=== PATIENT | male | born 1960 | race Hispanic/Latino ===

== ENCOUNTER 2020-12-20 20:53 | Emergency (ER) | payer OTHER ==
[~2020-12-20] VITALS: Ht 172.7 cm; Wt 90.7 kg
[2020-12-20 21:02] VITALS: BP 120/57
[2020-12-20 21:06] VITALS: BP 114/65
[2020-12-20] MEDS ORDERED: FAMOTIDINE/PF 20 MG/2 ML VIAL IV SCH (21:15)
[2020-12-20] MEDS ORDERED: FAMOTIDINE/PF 20 MG/2 ML VIAL IV ONE (21:20)
[2020-12-20 21:33] LABS: BASOPHILS % (AUTO) 0.1 % (0.0-5.0); EOSINOPHILS % (AUTO) 0.8 % (0.0-8.0); HEMATOCRIT 42.5 % (42-54); LYMPHOCYTES % (AUTO) 16.4 % (21.0-51.0); MEAN CORPUSCULAR HEMOGLOBIN 28.6 pg (27.0-33.0); MEAN CORPUSCULAR HGB CONC 33.4 g/dL (32.0-36.0); MEAN CORPUSCULAR VOLUME 85.7 fL (79-99); MONOCYTES % (AUTO) 5.2 % (3.0-13.0); NEUTROPHILS % (AUTO) 77.1 % (40.0-77.0); PLATELET COUNT (AUTO) 246 K/uL (130-400); RED BLOOD CELL COUNT(AUTO) 4.96 MIL/uL (4.50-6.20); RED CELL DISTRIBUTION WIDTH 13.6 % (11.0-15.5); WHITE BLOOD COUNT (AUTO) 10.1 K/uL (4.8-10.8)
[2020-12-20 21:44] LABS: CREATININE 1.2 mg/dL (0.5-1.5); POTASSIUM 4.3 mmol/L (3.5-5.1)
[2020-12-20 22:06] LABS: ALBUMIN 3.3 g/dL (3.5-5.0); BILIRUBIN,TOTAL 0.4 mg/dL (0.2-1.0); TOTAL PROTEIN, SERUM 6.2 g/dL (6.0-8.3)
[2020-12-20 22:51] VITALS: BP 110/61
[2020-12-20] MEDS ORDERED: ONDA4TAB10 PO (23:42)
[2020-12-20] MEDS ORDERED: PRED50TA2 PO (23:42)
[2020-12-20] MEDS ORDERED: PREDNISONE 20 MG TABLET PO SCH (23:45)
[2020-12-20] MEDS ORDERED: ONDANSETRON ODT 4 MG TAB SL SCH (23:45)
[2020-12-21] MEDS ORDERED: PREDNISONE 20 MG TABLET ONE (00:01)
[2020-12-21] MEDS ORDERED: ONDANSETRON ODT 4 MG TAB ONE (00:02)
[2020-12-21 00:07] VITALS: BP 123/74
== END 2020-12-21 00:21 | disposition home or self-care (01) ==
LOC: EDH 20:53
DX: T63.441A Toxic effect of venom of bees, accidental (unintentional), initial encounter (principal); R11.0 Nausea; E11.9 Type 2 diabetes mellitus without complications; Z79.899 Other long term (current) drug therapy; Y92.89 Other specified places as the place of occurrence of the external cause
CPT/HCPCS: 36415; 71045; 80053; 84484; 85025; 93005; 96374; 99285; J3490